=== PATIENT | female | born 2005 | race Caucasian/White ===

== ENCOUNTER 2024-07-12 19:06 | Emergency (ER) | payer OTHER, SELFPAY ==
[2024-07-12 19:20] VITALS: BP 121/82; PULSE 103; RESP 18; TEMP 37.7; O2SAT 98; BMI 25.9
[2024-07-12 20:32] LABS: Basophils Absolute Auto 0.04 K/uL (0.00-0.30); Basophils Percent Auto 0.4 % (0.0-3.0); Eosinophils Absolute Auto 0.06 K/uL (0.00-0.50); Eosinophils Percent Auto 0.7 % (0.0-7.0); Hematocrit 35.5 % (33.0-51.0); Immature Granulocytes Abs Auto 0.01 K/uL (0.00-0.30); Immature Granulocytes Pct Auto 0.1 %; Lymphocytes Absolute Auto 2.39 K/uL (0.90-2.90); Lymphocytes Percent Auto 26.4 % (20-44); Mean Corpuscular HGB Conc 34 gm/dL (32-36); Mean Corpuscular Hemoglobin 31 pg (26-34); Mean Corpuscular Volume 91 fL (80-100); Monocytes Percent Auto 8.4 % (0.0-11.0); Neutrophils Absolute Auto 5.79 K/uL (1.7-7.0); Platelet Count* 336 K/uL (140-440); RDW Coefficient of Variation % 12.2 % (11.5-15.5); Red Blood Count 3.89 m/uL (4.00-5.20); White Blood Count* 9.05 K/uL (4.50-11.00)
[2024-07-12] MEDS: ONDANSETRON 2 MG/ML inj 4 MG IVP (20:38)
[2024-07-12] MEDS: KETOROLAC 15 MG/ML inj IVP (20:38)
[2024-07-12 20:43] LABS: Appearance Urine Clear (Clear); Bilirubin Urine 1+ (Negative); Blood Urine Trace-intact (Negative); Color Urine Yellow (Yellow); Glucose Urine Negative (Negative); Ketones Urine 1+ (Negative); Leukocyte Esterase Urine Negative (Negative); Nitrite Urine Negative (Negative); Protein Urine Trace (Negative); Specific Gravity Urine >= 1.030 (1.000-1.030); Urobilinogen Urine 0.2 (0.2-1.0); pH Urine 5.5 (5.0-8.5)
--- NOTE | 2024-07-12 21:04 | ED_ITS ---
HPI - General Adult General Date Seen: 07/12/24 Chief complaint: Abdominal Pain Stated complaint: abdominal pain Time Seen by Provider: 07/12/24 19:11 Source: patient Mode of arrival: ambulatory Limitations: no limitations History of Present Illness HPI narrative: Patient is a 19-year-old young woman, [employer] student, who had an IUD placed in March and has been having cramping ever since. Actually she notes that she has been having pelvic pain even prior to the IUD placed, it was put in in part to help control pelvic pain. She said she had 71 days of bleeding starting on April 27, bleeding stopped last week. She has had ongoing cramping over the past 3 months, she takes occasional ibuprofen. [facility] and had an ultrasound in April which showed that the IUD was in place. She is not sexually active, she says her boyfriend is elsewhere, no new sexual partners and no concerns about . No vaginal bleeding or discharge currently. No urinary symptoms. She says over the past few days her appetite has been decreased and pain is worse. She says she has had some vomiting today and also has been lightheaded. Related Data Home Medications ?Medication ?Instructions ?Recorded ?Confirmed methylphenidate HCl 10 mg 10 mg PO DAILY 07/12/24 07/12/24 capsule,extended release (40-60) sprinkle (Aptensio XR) Allergies Allergy/AdvReac Type Severity Reaction Status Date / Time No Known Drug Allergies Allergy Verified 07/12/24 19:26 Review of Systems Status of ROS: Reports: 10 or more systems reviewed and unremarkable except as noted in History and below Exam Narrative: Exam Narrative: Vital signs reviewed In general, alert, nontoxic young woman. She looks comfortable, using her phone in the room. Head: Normocephalic, atraumatic. Eyes: Sclera clear. Pupils equal and reactive. ENT: Mucous membranes moist. Neck: Supple without adenopathy. Heart: Regular rate and rhythm without murmur. Lungs: Clear. No increased work of breathing, crackles or wheezes. Abdomen: Soft, nondistended. Bowel sounds present. No significant tenderness, no rebound guarding or rigidity. Extremities: Well perfused, pulses intact. No significant edema. Neurologic: Alert, conversant. Speech fluent, face symmetric. Moves all extremities equally. Skin: Warm, dry well perfused. Affect: Normal. Const: Vital Signs, click to edit/add: Vital Signs - 24 hr 07/12/24 19:20 07/12/24 23:18 Temperature 99.8 F H Pulse Rate [Pulse Oximeter] 103 H Respiratory Rate 18 Blood Pressure [Ri ght Upper Arm] 121/82 112/59 L Pulse Oximetry 98 Oxygen Delivery Me thod Room Air Documenting provider has reviewed patient's vital signs: yes Course Course ED Course: Patient presents with uterine cramping for the past several months, increased pelvic pain over the past couple of days. She does note that she had the IUD placed because of pelvic pain, so a lot of this was present even before the IUD. IUD was in good position as of April. I do think other possible causes of pelvic pain need to be ruled out including appendicitis, UTI, etcetera. Will give some Toradol and Zofran for symptomatic relief, labs including a CBC, CRP, UA UPT are pending. Symptoms are improved with Toradol and Zofran. Her labs are notable for normal white blood cell count of 9, normal diff. Hemoglobin is 12. Metabolic panel is notable for a CO2 of 18 and is otherwise normal. CRP is less than 0.5. Urinalysis shows 1+ ketones, negative nitrites, 0-2 red cells and 0-2 white cells. test is negative. I elected to do a CT scan to rule out other causes for increased pain over the past couple of days, given that she had an ultrasound which was unremarkable in April. CT scan by my review shows IUD to be in place, I do not see any significant inflammatory changes. She has a cyst on the left ovary. Final radiology read notes a 4.7 cm left ovarian cyst, and suspicion for ruptured left corpus luteal cyst with a small volume of mildly complex fluid in the pelvis. IUD is present and in place. The cyst appears simple. Based on her presentation, I am not concerned at this time with ovarian torsion. Hemorrhagic cyst with free fluid might be contributing to worsening of her pelvic pain however. She is wondering why she has been having these symptoms for so long, discussed that based on killian's findings, I think ruptured ovarian cyst is playing a role, but I do not think this is causing her long-term symptoms. I do think would be reasonable to follow up again with her women's health provider, discussed that the ovarian cyst should be followed up by repeat ultrasound, and they can discuss further her more chronic pelvic pain. Discussed that endometriosis may be a possibility. Repeat vital signs blood pressure 112/59, pulse 74. Recommend ibuprofen and Tylenol, she declines need for Zofran at home. Return for severe pain, fevers, vomiting or other wors ening. Vital Signs Vital signs: Initial Vital Signs Temperature 99.8 F H 07/12/24 19:20 Temperature Source Temporal Artery Scan 07/12/24 19:20 Pulse Rate 103 H 07/12/24 19:20 Pulse Rhythm Regular 07/12/24 19:20 Respiratory Rate 18 07/12/24 19:20 Blood Pressure 121/82 07/12/24 19:20 Blood Pressure Mean 95 07/12/24 19:20 Blood Pressure Position Sitting 07/12/24 19:20 Pulse Oximetry 98 07/12/24 19:20 Oxygen Delivery Method Room Air 07/12/24 19:20 Vital Signs Temperature 99.8 F H 07/12/24 19:20 Pulse Rate 103 H 07/12/24 19:20 Respiratory Rate 18 07/12/24 19:20 Blood Pressure 121/82 07/12/24 19:20 Pulse Oximetry 98 07/12/24 19:20 Oxygen Delivery Method Room Air 07/12/24 19:20 Temperature 99.8 F H 07/12/24 19:20 Pulse Rate 103 H 07/12/24 19:20 Respiratory Rate 18 07/12/24 19:20 Blood Pressure 112/59 L 07/12/24 23:18 Pulse Oximetry 98 07/12/24 19:20 Oxygen Delivery Method Room Air 07/12/24 19:20 Medications Administered Medications: Discontinued Medications Generic Name Dose Route Start Last Admin Trade Name Freq PRN Reason Stop Dose Admin Ketorolac Tromethamine 15 mg 07/12/24 20:06 07/12/24 20:38 Ketorolac 15 Mg/Ml Inj IVP 07/12/24 20:07 15 mg ONCE ONE Administration Ondansetron HCl 4 mg 07/12/24 20:06 07/12/24 20:38 Ondansetron 2 Mg/Ml Inj IVP 07/12/24 20:07 4 mg ONCE ONE Administration Medical Decision Making Lab Data Labs: Lab Results 07/12/24 07/12/24 Range/Units 20:21 20:34 WBC 9.05 (4.50-11.00) K/uL RBC 3.89 L (4.00-5.20) m/uL Hgb 12.0 (12.0-16.0) gm/dL Hct 35.5 (33.0-51.0) % MCV 91 (80-100) fL MCH 31 (26-34) pg MCHC 34 (32-36) gm/dL RDW Coeff of [place] 12.2 (11.5-15.5) % Plt Count 336 (140-440) K/uL Neut % (Auto) 64.0 (42.0-72.0) % Lymph % (Auto) 26.4 (20-44) % [place] % (Auto) 8.4 (0.0-11.0) % Eos % (Auto) 0.7 (0.0-7.0) % Baso % (Auto) 0.4 (0.0-3.0) % Neut # (Auto) 5.79 (1.7-7.0) K/uL Lymph # (Auto) 2.39 (0.90-2.90) K/uL [place] # (Auto) 0.80 (0.00-0.90) K/UL Eos # (Auto) 0.06 (0.00-0.50) K/uL Baso # (Auto) 0.04 (0.00-0.30) K/uL Abs Immat Gran (auto) 0.01 (0.00-0.30) K/uL Imm/Tot Granulo (auto) 0.1 % Sodium 135 (135-149) mmol/L Potassium 3.5 L (3.6-5.1) mmol/L Chloride 103 (96-114) mmol/L Carbon Dioxide 18 L (20-32) mmol/L Anion Gap 14 (7-15) mEq/L BUN 10 (5-24) mg/dL Creatinine 0.5 (0.5-1.5) mg/dL Estimated Creat Clear 148.47 Estimated GFR 138 ml/min Glucose 83 (60-115) mg/dL Calcium 9.1 (8.4-10.6) mg/dL C-Reactive Protein < 0.5 L (0.5-1.0) mg/dL Urine Color Yellow (Yellow) Urine Appearance Clear (Clear) Urine pH 5.5 (5.0-8.5) Ur Specific [place] >= 1.030 (1.000-1.030) Urine Protein Trace A (Negative) Urine Glucose (UA) Negative (Negative) Urine Ketones 1+ A (Negative) Urine Blood Trace-intact A (Negative) Urine Nitrite Negative (Negative) Urine Bilirubin 1+ A (Negative) Urine Urobilinogen 0.2 (0.2-1.0) Ur Leukocyte Esterase Negative (Negative) Urine RBC 0-2 (0-2) Urine WBC 0-2 (0-5) Ur Squamous Epith Cells Moderate A (None-Few) Amorphous Sediment Many A (None) Urine Bacteria None (None) Urine HCG, Qual Negative (Negative) Imaging Data CT scan - abdomen: Attestation: I have reviewed the pertinent imaging results. Radiologist's impression: Patient: LEONEL DWYER Facility: [facility] Site . Site : 2004 Study: CT-Abdomen/Pelvis W ISOVUE 370-07/12/2024 10:47:51 PM Ordering Physician: Armen Pendleton Final Report: Indication: Worsening pelvic pain Technique: CT through the abdomen and pelvis following 71 mL Isovue 370 IV contrast Comparison: None Findings: Lower chest: No acute abnormality appreciated. Hepatobiliary: No significant parenchymal abnormality is appreciated. Spleen: Unremarkable. Pancreas: No acute abnormality appreciated. Adrenal glands: No acute abnormality appreciated. Kidneys: No significant parenchymal abnormality appreciated. No visualized calcu li. No hydronephrosis. Bowel: No obstruction. No focal perienteric or pericolonic stranding is appreciated. Vascular: No acute abnormality appreciated. Lymph nodes: No gross lymphadenopathy. Peritoneum: Small volume free fluid in the pelvis. Portions of the fluid appears slightly complex. : There is a 4.7 centimeter left ovarian/adnexal cyst, density appearing simple. IUD present. There is a left rim enhancing irregular walled cystic lesion. Soft tissues: No acute abnormality appreciated. Bones: No acute fracture. No lytic or blastic lesion. Impression: 1. Suspect ruptured left corpus luteal/hemorrhagic cyst with small volume mildly complex fluid in the pelvis. 2. There is a 4.7 centimeter left ovarian/adnexal cyst. If there is concern for additional superimposed pelvic pathology, ultrasound could be considered for further evaluation. 3. IUD present. Discharge Plan Discharge Clinical Impression: Ovarian cyst Patient Disposition: Home, Self-Care Condition: Stable Instructions: Ovarian Cyst (ED) Additional Instructions: Ibuprofen 400 mg plus or minus Tylenol 1000 mg 3 times daily as needed over the next couple of days. I anticipate pain will settle down at that point. If for any reason you have more severe pain Activity Level: No Restrictions Discharge Diet: Regular Prescriptions: No Action methylphenidate HCl [Aptensio XR] 10 mg cap,ER sprinkle,biphasic 40-60 10 mg PO DAILY Follow Up/Referrals: Provider,Not a Local [Primary Care Provider] - Stand Alone Forms: [employer] Info Instructions
[2024-07-12 21:09] LABS: Slide Review Reflex No
[2024-07-12 21:12] LABS: Chloride* 103 mmol/L (96-114); Potassium* 3.5 mmol/L (3.6-5.1); Sodium* 135 mmol/L (135-149)
[2024-07-12 21:15] LABS: Creatinine* 0.5 mg/dL (0.5-1.5); Est. Creatinine Clearance* 148.47; Estimated Glomerular Filt Rate 138 ml/min
[2024-07-12 21:16] LABS: Anion Gap 14 mEq/L (7-15); Blood Urea Nitrogen* 10 mg/dL (5-24); Calcium* 9.1 mg/dL (8.4-10.6); Carbon Dioxide* 18 mmol/L (20-32); Glucose* 83 mg/dL (60-115)
[2024-07-12 21:23] LABS: C Reactive Protein* < 0.5 mg/dL (0.5-1.0)
[2024-07-12 21:28] LABS: Amorphous Sediment Urine Many; RBC Urine 0-2 (0-2); Squamous Epithelial Cell Urine Moderate (None-Few); WBC Urine 0-2 (0-5)
--- NOTE | 2024-07-12 21:52 | CRLHL7_ITS ---
For Patients: As a result of the Century Cures Act, medical imaging exams and procedure reports are released immediately into your electronic medical record. You may view this report before your referring provider. If you have questions, please contact your health care provider. Indication: Worsening pelvic pain Technique: CT through the abdomen and pelvis following 71 mL Isovue 370 IV contrast Comparison: None Findings: Lower chest: No acute abnormality appreciated. Hepatobiliary: No significant parenchymal abnormality is appreciated. Spleen: Unremarkable. Pancreas: No acute abnormality appreciated. Adrenal glands: No acute abnormality appreciated. Kidneys: No significant parenchymal abnormality appreciated. No visualized calculi. No hydronephrosis. Bowel: No obstruction. No focal perienteric or pericolonic stranding is appreciated. Vascular: No acute abnormality appreciated. Lymph nodes: No gross lymphadenopathy. Peritoneum: Small volume free fluid in the pelvis. Portions of the fluid appears slightly complex. : There is a 4.7 centimeter left ovarian/adnexal cyst, density appearing simple. IUD present. There is a left rim enhancing irregular walled cystic lesion. Soft tissues: No acute abnormality appreciated. Bones: No acute fracture. No lytic or blastic lesion. Impression: 1. Suspect ruptured left corpus luteal/hemorrhagic cyst with small volume mildly complex fluid in the pelvis. 2. There is a 4.7 centimeter left ovarian/adnexal cyst. If there is concern for additional superimposed pelvic pathology, ultrasound could be considered for further evaluation. 3. IUD present. Please note that all CT scans at this facility use dose modulation, iterative reconstruction, and/or weight-based dosing when appropriate to reduce radiation dose to as low as reasonably achievable. Dictated by Dvaie Gray MD @ 07/12/2024 10:57:24 PM (Electronically Signed)
[2024-07-12 21:53] LABS: Ur HCG Qualitative* Negative (Negative)
[2024-07-12 23:18] VITALS: BP 112/59
[2024-07-12 23:28] VITALS: PULSE 74
== END 2024-07-12 23:22 | disposition home or self-care (01) ==
PROVIDERS: Emergency Provider Emergency Medicine
DX: N83.202 Unspecified ovarian cyst, left side (principal)
CPT/HCPCS: 36415; 74177; 80048; 81001; 81025; 85025; 86140; 96374; 96375; 99284; J1885; J2405; Q9967